=== PATIENT | female | born 1945 | race Caucasian/White ===

== ENCOUNTER → 2023-11-11 10:02 | Outpatient (REF) | payer OTHER, SELFPAY | LOC: HWRCS 10:02 | PROVIDERS: ATTENDING PHYSICIAN Family Medicine | DX: R01.1 Cardiac murmur, unspecified (principal) | CPT/HCPCS: 93306 ==

== ENCOUNTER → 2024-03-13 11:27 | Outpatient (REF) | payer OTHER, SELFPAY | LOC: HWRCS 11:27 | PROVIDERS: ATTENDING PHYSICIAN Internal Medicine Cardiovascular Disease; FAMILY PHYSICIAN Family Medicine | DX: I10 Essential (primary) hypertension (principal); R93.1 Abnormal findings on diagnostic imaging of heart and coronary circulation; R07.89 Other chest pain | CPT/HCPCS: 78452; 93017; A9500; J2785 ==